=== PATIENT | male | born 1955 | race Caucasian/White ===

== ENCOUNTER 2017-09-06 09:43 | Inpatient (IN) | payer BC ==
[~2017-09-06] VITALS: Ht 185.4 cm; Wt 84.8 kg
[2017-09-06] VITALS (12 sets, daily range): BP systolic 104–132; BP diastolic 53–78
[~2017-09-06 09:43] MED LIST: Clindamycin 600mg 50 ML IV ONE; Propofol 200mg/20ml IV ONE; celeBREX 200mg Cap **SURGERY PATIENTS ONLY ORAL ONE; oxyCONTIN 20mg tab ORAL ONE
--- NOTE | 2017-09-06 10:33 | Anethesia Preoperative Eval ---
Anesthesia Pre-op PMH/ROS General Date of Evaluation: Sep 06, 2017 Anesthesiologist: Merlin ASA Score: ASA 2 Mallampati Score Class I : Soft palate, uvula, fauces, pillars visible Class II: Soft palate, uvula, fauces visible Class III: Soft palate, base of uvula visible Class IV: Only hard plate visible Mallampati Classification: Class II Surgeon: Dvai Diagnosis: Left hip OA Surgical Procedure: Left THR Anesthesia History: none Family History: no anesthesia problems Allergies: Coded Allergies: CYCLOBENZAPRINE (Verified Allergy, Intermediate, SWELLING, 09/06/17) PENICILLINS (Verified Allergy, Intermediate, SWELLING , 09/06/17) Medications: see eMAR Past Medical History Cardiovascular: Denies: HTN, CAD, TX, valve dz, arrhythmia, other Pulmonary: Denies: asthma, COPD, CURTIS, other Gastrointestinal/Genitourinary: Denies: GERD, CRI, ESRD, other Neurologic/Psychiatric: Denies: dementia, CVA, depression/anxiety, TIA, other Endocrine: Denies: DM, hypothyroidism, steroids, other HEENT: Denies: cataract (L), cataract (R), glaucoma, EKWOK (L), EKWOK (R), other Hematology/Immune: Denies: anemia, DVT, bleeding disorder, other Musculoskeletal/Integumentary: Reports: OA, DJD, Denies: RA, DDD, edema, other PSxH Narrative: Denies Anesthesia Pre-op Phys. Exam Physician Exam Last Vital Signs Date Time Temp Pulse Resp B/P (MAP) Pulse Ox O2 Delivery O2 Flow Rate FiO2 09/06/17 10:29 97.6 48 16 132/78 100 Room Air Constitutional: NAD Cardiovascular: RRR Respiratory: CTA Airway Exam Mallampati Score: Class II MO: full ROM: full Teeth: intact Anesthesia Pre-op A/P Labs see chart Studies Pre-op Studies: EKG - sr Risk Assessment & Plan Assessment: ASA II Plan: GA with SAB Status Change Before Surgery: No Pre-Antibiotics Drug: Clindamycin 900mg Given Within 1 Hr of Incision: KUSHAL Khanna M.D. Sep 06, 2017 10:33
[2017-09-06] MEDS ORDERED: NKM (10:37)
[2017-09-06] MEDS ORDERED: Morphine Sulfate PF 10 ML ONE (11:03)
[2017-09-06] MEDS ORDERED: Ketorolac 30mg Inj ONE (11:04)
[2017-09-06] MEDS ORDERED: cloNIDine 1000mcg/10ml inj ONE (11:04)
[2017-09-06] MEDS ORDERED: Kenalog-40 1ml Vial ONE (11:04)
[2017-09-06] MEDS ORDERED: Clindamycin 6 ML ONE (11:04)
[2017-09-06] MEDS ORDERED: EPINEPHrine 1mg/1ml Amp ONE (11:05)
[2017-09-06] MEDS ORDERED: NeoSporin Gu Irrig 1ml Amp IRRIG ONE (11:05)
[2017-09-06] MEDS ORDERED: Bupivacaine 0.25% Inj 30ml INJ ONE ×2 (11:05→13:48)
[2017-09-06] MEDS ORDERED: Bupivacaine 0.5% Inj 30 ml vial INJ ONE (11:05)
[2017-09-06] MEDS ORDERED: Bacitracin 50000 Units Vial ONE (11:05)
[2017-09-06] MEDS ORDERED: Duramorph PF 10mg/10ml amp IV ONE (11:55)
[2017-09-06] MEDS ORDERED: Sterile Water Irrig 1000ml IRRIG ONE (12:00)
[2017-09-06] MEDS ORDERED: Midazolam 2mg/2ml Inj ONE (12:00)
[2017-09-06] MEDS ORDERED: LR 1000ml ONE (12:00)
[2017-09-06] MEDS ORDERED: NS Irrig 1000ml ONE (12:00)
[2017-09-06] MEDS ORDERED: Dexamethasone 4mg/ml vial ONE (12:00)
[2017-09-06] MEDS ORDERED: NS Irrig 2000ml IRRIG ONE (12:00)
[2017-09-06] MEDS ORDERED: fentaNYL 100 mcg/2 mL IV ONE (12:00)
[2017-09-06] MEDS ORDERED: Lidocaine 1% MPF 10mg/ml 5ml ONE (12:00)
--- NOTE | 2017-09-06 12:25 | Pre-Procedure Note/Attestation ---
Pre-Procedure Note/Attestation Complete Prior to Procedure Planned Procedure: left Procedure Narrative: emigdio Indications for Procedure Pre-Operative Diagnosis: left hip oa Attestation I attest that I discussed the nature of the procedure; its benefits; risks and complications; and alternatives (and the risks and benefits of such alternatives ), prior to the procedure, with the patient (or the patient's legal congressional representative). I attest that, if there was a reasonable possibility of needing a blood transfusion, the patient (or the patient's legal congressional representative) was given the [facility] standardized written summary, pursuant to the Kulwinder Myriam Blood Safety Act ([place] Health and Safety Code # 1645, as amended). I attest that I re-evaluated the patient just prior to the surgery and that there has been no change in the patient's H&P, except as documented below: LESLIE MENDOZA Sep 06, 2017 12:25
--- NOTE | 2017-09-06 12:25 | Operative Note - PDOC ---
Operative Note Operative Note Pre-op Diagnosis: left hip oa Procedure: l emigdio Post-op Diagnosis: same as pre-op plus Operative Findings: consistent w/pre-op dx studies Anesthesia: regional Specimen: none Complications: none Condition: stable Estimated Blood Loss: none Implant(s) used?: Yes LESLIE MENDOZA Sep 06, 2017 12:25
[2017-09-06] MEDS ORDERED: Morphine Sulfate 2mg/ml Inj IVP PRN (12:30)
[2017-09-06] MEDS ORDERED: oxyCODONE 5mg IR tab ORAL PRN (12:30)
[2017-09-06] MEDS ORDERED: Morphine Sulfate 4mg/ml Inj IVP PRN (12:30)
[2017-09-06] MEDS ORDERED: Milk of Magnesia 30ml Ud ORAL PRN (12:30)
[2017-09-06] MEDS ORDERED: LR 1000ml 1,000 ML IVLG SCH (12:56)
--- NOTE | 2017-09-06 12:56 | Immediate Post-Op Evaluation ---
Immediate Post-Op Evalulation Immediate Post-Op Evalulation Procedure: Left total hip arthroplasty Date of Evaluation: Sep 06, 2017 Time of Evaluation: 14:19 IV Fluids: 1.5L Blood Products: 0 Estimated Blood Loss: 150 Urinary Output: 110 Blood Pressure Systolic: 104 Blood Pressure Diastolic: 57 Pulse Rate: 56 Respiratory Rate: 16 O2 Sat by Pulse Oximetry: 99 Temperature (Fahrenheit): 97.3 Pain Score (1-10): 0 Nausea: No Vomiting: No Complications 0 Patient Status: awake, reacts, patent, none Hydration Status: adequate Drug: Clindamycin 900mg Given Within 1 Hr of Incision: Yes Time Given: 12:30 KUSHAL JENKINS M.D. Sep 06, 2017 12:56
[2017-09-06] MEDS ORDERED: Hydromorphone 0.5mg/0.5ml inj IVP PRN (13:00)
[2017-09-06] MEDS ORDERED: DiphenhydrAMINE 50mg/ml Inj IVP PRN (13:00)
[2017-09-06] MEDS ORDERED: Midazolam 2mg/2ml Inj IVP PRN (13:00)
[2017-09-06] MEDS ORDERED: fentaNYL 100 mcg/2 mL IV PRN (13:00)
[2017-09-06] MEDS ORDERED: Tranexamic Acid 1,000 MG in NS 65 ML IVPB ONE (13:00)
[2017-09-06] MEDS ORDERED: ceFAZolin sod 2 GM in D5W 110 ML IV SCH (14:00)
--- NOTE | 2017-09-06 15:11 | Diagnostic Imaging Report ---
Indication: Postoperative left hip arthroplasty Technique: One view of the pelvis Comparison: One hour earlier Findings: There is a left hip arthroplasty prosthesis. There is gas from the surgical wound in the soft tissues. Impression: Postoperative left hip. No unusual features
--- NOTE | 2017-09-06 16:33 | Diagnostic Imaging Report ---
Indication: Intraoperative Technique: One view of the pelvis Comparison: none Findings: Intraoperative images demonstrate acetabular component of a hip hemiarthroplasty and a left femoral broach. Air in the wound from the surgical exposure is demonstrated Impression: Intraoperative imaging, as described
[2017-09-06] MEDS ORDERED: D5 1/2NS w/KCl 20mEq 1,000 ML IV SCH (17:00)
[2017-09-06] MEDS: Clindamycin 600mg 50 ML IVPB SCH ×2 (17:26→23:51)
[2017-09-06] MEDS: Docusate 100mg cap ORAL SCH (17:29)
[2017-09-06] MEDS: oxyCONTIN 20mg tab ORAL SCH (21:18)
[2017-09-07 00:07] VITALS: BP 118/65
[2017-09-07 04:49] VITALS: BP 114/60
[2017-09-07 07:59] LABS: ANION GAP 8 mmol/L (5-15); BLOOD UREA NITROGEN 17 mg/dL (7-18); CALCIUM 8.9 MG/DL (8.5-10.1); CARBON DIOXIDE 26 MMOL/L (21-32); CHLORIDE 104 MMOL/L (98-107); CREATININE 1.2 MG/DL (0.55-1.30); POTASSIUM 4.6 MMOL/L (3.5-5.1); SODIUM 138 MMOL/L (136-145)
[2017-09-07 08:35] LABS: BASOPHILS % (AUTO) 0.2 % (0.0-2.0); LYMPHOCYTES % (AUTO) 5.4 % (20.0-45.0); MONOCYTES % (AUTO) 4.4 % (1.0-10.0)
[2017-09-07 08:42] VITALS: BP 118/63
--- NOTE | 2017-09-07 08:50 | 48 Hour Post Anesthesia Eval ---
Post Anesthesia Evaluation Procedure: Left total hip arthroplasty Date of Evaluation: Sep 07, 2017 Time of Evaluation: 11:40 Blood Pressure Systolic: 60 0: 72 Pulse Rate: 72 Respiratory Rate: 20 Temperature (Fahrenheit): 97.6 O2 Sat by Pulse Oximetry: 99 Airway: patent Nausea: No Vomiting: No Pain Intensity: 3 Hydration Status: adequate Cardiopulmonary Status: stable Mental Status/LOC: patient returned to baseline Follow-up Care/Observations: n/a Post-Anesthesia Complications: none Follow-up care needed: N/A JESSICA CHOWDARY M.D. Sep 07, 2017 08:50
[2017-09-07] MEDS: Docusate 100mg cap ORAL SCH ×3 (09:00→12:38)
[2017-09-07] MEDS ORDERED: celeBREX 200mg Cap **SURGERY PATIENTS ONLY ORAL SCH (09:00)
[2017-09-07] MEDS: oxyCONTIN 20mg tab ORAL SCH (09:09)
[2017-09-07 11:55] VITALS: BP 123/76
[2017-09-07 13:36] LABS: WHITE BLOOD COUNT 17.8 K/UL (4.8-10.8)
[2017-09-07 13:37] LABS: HEMATOCRIT 38.7 % (42.0-52.0); MEAN CORPUSCULAR VOLUME 93 FL (80-99); RED BLOOD COUNT 4.16 M/UL (4.70-6.10)
[2017-09-07 13:40] LABS: PLATELET COUNT 237 K/UL (150-450); RED CELL DISTRIBUTION WIDTH 11.8 % (11.6-14.8)
[2017-09-07 15:40] VITALS: BP 125/66
[2017-09-07] MEDS ORDERED: Tubing IV Secondary IV ONE (16:06)
--- NOTE | 2017-09-09 08:15 | Operative Note - Dictated ---
DATE OF OPERATION: 09/06/2017 PREOPERATIVE DIAGNOSIS: Left hip osteoarthritis. POSTOPERATIVE DIAGNOSIS: Left hip osteoarthritis. PROCEDURE: Left total hip arthroplasty. SURGEON: Shiva Tomlinson M.D. ANESTHESIA: Spinal. INDICATION FOR PROCEDURE: The patient is a 62-year-old gentleman with progressive left hip osteoarthritis, elected to undergo left total hip arthroplasty. Risks, limitations, expectations, and complications of procedure were discussed in detail. All questions were addressed. DESCRIPTION OF PROCEDURE: After informed consent was obtained, the patient was brought into the operating room and placed the patient under spinal anesthesia. Perdomo catheter was placed. Clindamycin was administered. The patient then carefully placed in a beach-chair position. Left hip was prepped and draped in a sterile manner. Time-out was performed. Posterolateral skin incision was then made. Fascia leesa was incised. Piriformis and short external rotators were tagged with #2 FiberWire. Hip was dislocated and neck cut was then made sequential reaming up to 57 was performed. A 58 acetabular component was placed and approximately 45 degrees abduction and 15 degrees anteversion based on the anatomy. Neutral liner was placed. Posterior inferior osteophytes were removed. Sequential broaching up to size 7 was performed. A 7 high offset 0 [id number] combo was selected. Intraoperative imaging showed good fit and fill of the femoral component upon placement of the acetabular component. Leg lengths were difficult to assess due to inadequacy of the intraoperative x-rays, however, clinically, it seemed like the leg lengths were relatively spot on. Hip flexed to 130 degrees 70 internal rotation and External rotation was stable. At this point, the trial components were removed. Final implants were impacted into place. The capsule was reapproximated with two drill holes to the greater trochanter. Fascia leesa was approximated with #1 Vicryl, 2-0 Vicryl suture, 3-0 Monocryl suture. Steri-Strips and a sterile dressing were applied. The patient was awoken and taken to recovery with stable vital signs. ESTIMATED BLOOD LOSS: 25 mL. COMPLICATIONS: None. SPECIMENS: Femoral head. IMPLANTS: Include size 58 acetabular component, neutral liner, size 7 Accolade stem, and 0 [id number] combo. Shiva Tomlinson M.D. DR: YUVAL JOB#: [id number] CC: DELORIS
--- NOTE | 2017-09-09 12:10 | Discharge Summary ---
Discharge Summary Hospital Course Date of Admission Sep 06, 2017 at 09:43 Date of Discharge Sep 07, 2017 at 15:45 Admitting Diagnosis Left hip osteoarthritis. Reason for Hospitalization: elective surgery HPI José Ba is a 62 year old male who was admitted on Sep 06, 2017 at 09:43 for Left hip osteoarthritis. Patient was admitted for elective surgery Procedures s/p 09/06/[address] Tomlinson Left total hip arthroplasty. Hospital Course s/p surgery course of recovery uneventful ambulated with PT fall precautions dressing C/D/I pain management- addressed and controlled voided tolerated diet surgeon cleared for dc home with services fup with surgeon as outpt scripts for analgesics provided by surgeon FINAL DIAGNOSIS Left hip osteoarthritis. s/p Left total hip arthroplasty. Discharge Condition Upon Discharge: stable Discharge Disposition Patient was discharged to Home with Home Health(06) Discharge Diagnoses: Discharge Instructions Discharge Instructions Special Instructions I have been assigned to complete a D/C Summary on this account. I was not involved in the patient management Kristel Kaur NP ([place]) Sep 09, 2017 12:10
== END 2017-09-07 15:45 | disposition home health service (06) | DRG 470 ==
LOC: SDSOVERFLO 09:43 → 3E 15:20
PROC: 0SRB0JA Replacement of Left Hip Joint with Synthetic Substitute, Uncemented, Open Approach (ICD-10-PCS; principal; 2017-09-06 13:15)
DX: M16.12 Unilateral primary osteoarthritis, left hip (principal); I10 Essential (primary) hypertension
CPT/HCPCS: 36415; 72170; 80048; 85007; 85025; 86850; 86900; 86901; 87081; 94003; 94150; J2250; J2405; S0077